=== PATIENT | female | born 1945 | race Hispanic/Latino ===

== ENCOUNTER 2023-11-09 05:00 | Observation (INO) | payer MEDICARE ==
[2023-11-04 12:05] VITALS: BP 146/80; PULSE 88; RESP 18
[2023-11-09] VITALS (26 sets, daily range): BP systolic 133–173; BP diastolic 49–93; PULSE 60–78; RESP 13–19; O2SAT 97
[~2023-11-09] VITALS: Ht 170.2 cm; Wt 102.5 kg
[~2023-11-09 05:00] MED LIST: ACET-2743 PO; AEC81 PO; CARB15DR3 OU; ESOM20CA31 PO; FIBER PO; IMODIUM PO; LINA5TAB PO; MELATONIN PO; SENOKOT PO; TRIA1TAB3 PO; VITAMIN B12 PO; VITAMIN C PO; VITAMIN E PO; ZINC50TA15 PO; [UNRECOGNIZED DRUG - CODE] PO
[2023-11-09] MEDS: CEFAZOLIN SODIUM 2 GM VIAL ONE (06:31)
[2023-11-09] MEDS: 0.9%NACL 1000ML 1,000 ML IV ONE (06:31)
[2023-11-09] MEDS ORDERED: SUCCINYLCHOLINE CHLORIDE 20 MG/ML 10 ML VIAL ONE (08:37)
[2023-11-09] MEDS ORDERED: LIDOCAINE PF 100MG/5ML (2%) SYRINGE 5ML ONE (08:37)
[2023-11-09] MEDS ORDERED: PROPOFOL 10 MG/ML 20ML VIAL IV ONE (08:38)
[2023-11-09] MEDS ORDERED: ONDANSETRON 4MG INJ ONE (08:38)
[2023-11-09] MEDS ORDERED: MIDAZOLAM HCL 1 MG/ML 2ML VIAL ONE (08:38)
[2023-11-09] MEDS ORDERED: DEXAMETHASONE SOD PHOSPHATE 10MG/ML 1ML VIAL ONE (08:38)
[2023-11-09] MEDS ORDERED: GLYCOPYRROLATE 0.2 MG/ML 5 ML VIAL ONE (08:38)
[2023-11-09] MEDS ORDERED: NEOSTIGMINE METHYLSULFATE 1MG/ML IV ONE (08:38)
[2023-11-09] MEDS ORDERED: ROCURONIUM BROMIDE 10MG/1ML 5ML VL ONE (08:38)
[2023-11-09] MEDS ORDERED: FENTANYL CITRATE PF 50 MCG/1 ML 2ML VIAL ONE ×2 (08:39→11:42)
[2023-11-09] MEDS ORDERED: GENTAMICIN SULFATE 80 MG/2 ML VIAL ONE (10:09)
[2023-11-09] MEDS ORDERED: CEFAZOLIN SODIUM 1 GM VIAL ONE (10:09)
[2023-11-09] MEDS ORDERED: TRANEXAMIC ACID 1000MG/10ML ONE (10:09)
[2023-11-09] MEDS: CEFAZOLIN SODIUM 2 GM VIAL IVPB ONE ×2 (11:16→12:29)
[2023-11-09] MEDS: TRANEXAMIC ACID 1000MG/10ML IV ONE (11:19)
[2023-11-09] MEDS: GENTAMICIN SULFATE 80 MG/2 ML VIAL TP ONE (12:29)
[2023-11-09] MEDS: 0.9%NACL 48.45 ML, ROPIVACAINE 0.5% 49.25ML, EPINEPH 0.5MG KETOROLAC 30MG,CLONIDINE 80MCG IV PRN (12:30)
[2023-11-09] MEDS ORDERED: MEPERIDINE-PF 25 MG/ML SYG ONE (13:44)
[2023-11-09] MEDS: ONDANSETRON 4MG INJ ONE (14:52)
[2023-11-09] MEDS: ACETAMINOPHEN 1,000 MG/100 ML VIAL IV ONE (14:52)
[2023-11-09] MEDS: MEPERIDINE-PF 25 MG/ML SYG ONE (14:52)
[2023-11-09] MEDS: HYDRALAZINE 20MG/ML VIAL ONE (14:53)
[2023-11-09] MEDS ORDERED: ACETAMINOPHEN 325 MG TAB PO SCH (16:00)
[2023-11-09] MEDS ORDERED: ACETAMINOPHEN 325 MG TAB PO PRN ×2 (16:00)
[2023-11-09] MEDS ORDERED: BENZOCAINE/MENTH/CETYLPYRD CL 1 EACH LOZENGE MM PRN (16:00)
[2023-11-09] MEDS ORDERED: DIPHENOXYLATE HCL/ATROPINE 2.5/0.025 MG TAB PO PRN (16:00)
[2023-11-09] MEDS ORDERED: MAG/ALUM/SIMETH 30 ML UDCUP PO PRN (16:00)
[2023-11-09] MEDS ORDERED: DiphenhydrAMINE HCL 50 MG/ML VIAL IM PRN (16:00)
[2023-11-09] MEDS ORDERED: DIPHENHYDRAMINE HCL 25 MG CAPSULE PO SCH (16:00)
[2023-11-09] MEDS ORDERED: IMODIUM PO PRN (16:30)
[2023-11-09] MEDS ORDERED: SENOKOT PO PRN (16:30)
[2023-11-09] MEDS ORDERED: PANTOPRAZOLE 40 MG TAB DR PO PRN (16:30)
[2023-11-09] MEDS: HYDROMORPH /0.9% NACL/PF PCA 50 ML IV PRN (16:47)
[2023-11-09] MEDS: 0.9%NACL 1000ML 1,000 ML IV SCH (16:50)
[2023-11-09] MEDS: ONDANSETRON 4MG INJ IVP PRN (16:50)
[2023-11-09] MEDS ORDERED: CEFAZOLIN SODIUM 2 GM VIAL IVPB SCH (19:30)
[2023-11-09] MEDS: CARBOXYMETHYLCELLULOSE SODIUM OU SCH (20:11)
[2023-11-09] MEDS: [UNRECOGNIZED DRUG - OTHER] PO SCH (20:12)
[2023-11-09] MEDS: TRIAMTEREN/HCTZ 37.5/25 MG 1 TAB TAB PO SCH (20:12)
[2023-11-09] MEDS: CEFAZOLIN SODIUM 3 GM in DEXTROSE 5%-WATER 100 ML IVPB SCH (20:12)
[2023-11-09] MEDS: ASPIRIN 81 MG EC TAB PO SCH (20:12)
[2023-11-09] MEDS: HALOPERIDOL INJ 5 MG/ML VIAL IM SCH (21:44)
[2023-11-10] VITALS (9 sets, daily range): BP systolic 110–155; BP diastolic 53–69; PULSE 64–76; RESP 18–19; O2SAT 96
[2023-11-10] MEDS ORDERED: HYDROMORPHONE 0.5 MG SYG (0.5MG/0.5ML) IVP PRN ×2 (03:30)
[2023-11-10] MEDS: PROMETHAZINE HCL 25 MG/ML 1ML AMPULE IM ONE (03:46)
[2023-11-10 03:52] LABS: HEMATOCRIT 37.3 % (36-48); MEAN CORPUSCULAR HEMOGLOBIN 30.5 pg (27.0-33.0); MEAN CORPUSCULAR HGB CONC 33.2 g/dL (32.0-36.0); MEAN CORPUSCULAR VOLUME 91.6 fL (79-99); RED BLOOD CELL COUNT(AUTO) 4.07 MIL/uL (4.00-5.50); RED CELL DISTRIBUTION WIDTH 13.6 % (11.0-15.5); WHITE BLOOD COUNT (AUTO) 20.1 K/uL (4.8-10.8)
[2023-11-10 04:06] LABS: CREATININE 0.9 mg/dL (0.5-1.0); MAGNESIUM 1.9 mg/dL (1.80-2.40); POTASSIUM 3.7 mmol/L (3.5-5.1)
[2023-11-10 04:09] LABS: INR 0.96 (0.85-1.15); PROTHROMBIN TIME 11.4 SEC (9.6-11.6)
[2023-11-10 04:10] LABS: PARTIAL THROMBOPLASTIN TIME 20.5 SEC (26.3-35.5)
[2023-11-10] MEDS: TRAMADOL HCL 50 MG TABLET PO PRN ×2 (04:15→09:58)
[2023-11-10] MEDS ORDERED: PHARMACY COMMUNICATION MISC SCH (07:30)
[2023-11-10] MEDS: LINAGLIPTIN 5 MG TABLET PO SCH (08:40)
[2023-11-10] MEDS: RIVAROXABAN 10 MG TABLET PO SCH (08:40)
[2023-11-10] MEDS ORDERED: LOPERAMIDE HCL 2 MG CAP PO PRN (09:00)
[2023-11-10] MEDS: LACTULOSE 20 GM/30 ML UDCUP PO PRN (17:54)
[2023-11-11 03:52] LABS: HEMATOCRIT 34.1 % (36-48); MEAN CORPUSCULAR HEMOGLOBIN 29.3 pg (27.0-33.0); MEAN CORPUSCULAR HGB CONC 32.8 g/dL (32.0-36.0); MEAN CORPUSCULAR VOLUME 89.3 fL (79-99); RED BLOOD CELL COUNT(AUTO) 3.82 MIL/uL (4.00-5.50); RED CELL DISTRIBUTION WIDTH 14.2 % (11.0-15.5); WHITE BLOOD COUNT (AUTO) 11.7 K/uL (4.8-10.8)
[2023-11-11 03:58] LABS: CREATININE 0.8 mg/dL (0.5-1.0)
[2023-11-11 04:01] LABS: INR 1.06 (0.85-1.15); PROTHROMBIN TIME 12.5 SEC (9.6-11.6)
[2023-11-11 04:02] LABS: PARTIAL THROMBOPLASTIN TIME 30.8 SEC (26.3-35.5)
[2023-11-11] MEDS ORDERED: POTASSIUM CHLORIDE 10% ELIXIR 20 MEQ/15 ML UDCUP PO PRN (04:30)
[2023-11-11] MEDS: KCL 20 MEQ ERTAB PO PRN (04:53)
[2023-11-11] MEDS: POTASSIUM CHLORIDE 20MEQ/100ML 100 ML IV PRN (04:53)
[2023-11-11 05:41] VITALS: BP 129/75; PULSE 72; RESP 18
[2023-11-11 08:00] VITALS: BP 134/55; PULSE 96; RESP 18
[2023-11-11 11:25] VITALS: O2SAT 95
[2023-11-11 12:00] VITALS: BP 135/65; PULSE 74; RESP 18
[2023-11-11 16:00] VITALS: BP 165/85; PULSE 103; RESP 18
[2023-11-11 20:00] VITALS: BP 163/69; PULSE 89; RESP 20
[2023-11-12] VITALS (8 sets, daily range): BP systolic 133–152; BP diastolic 49–75; PULSE 68–99; RESP 16–20; O2SAT 96–97
[2023-11-12 04:04] LABS: HEMATOCRIT 33.1 % (36-48); MEAN CORPUSCULAR HEMOGLOBIN 30.1 pg (27.0-33.0); MEAN CORPUSCULAR HGB CONC 33.5 g/dL (32.0-36.0); MEAN CORPUSCULAR VOLUME 89.7 fL (79-99); RED BLOOD CELL COUNT(AUTO) 3.69 MIL/uL (4.00-5.50); RED CELL DISTRIBUTION WIDTH 14.1 % (11.0-15.5); WHITE BLOOD COUNT (AUTO) 14.2 K/uL (4.8-10.8)
[2023-11-12 04:33] LABS: CREATININE 0.7 mg/dL (0.5-1.0); POTASSIUM 3.7 mmol/L (3.5-5.1)
[2023-11-12] MEDS: DIPHENHYDRAMINE HCL 25 MG CAPSULE PO PRN (21:57)
[2023-11-13] VITALS: BP 153/51; PULSE 62; RESP 20
[2023-11-13 04:00] VITALS: BP 123/58; PULSE 71; RESP 18
[2023-11-13 08:00] VITALS: BP 105/45; PULSE 50; RESP 20; O2SAT 97
[2023-11-13 12:00] VITALS: BP 143/59; PULSE 70; RESP 18
== END 2023-11-13 17:10 ==
LOC: DAH 05:00 → DAHIP 05:01 → DAH 05:01 → 4DH 15:20
PROVIDERS: ADMIT Orthopaedic Surgery; ATTEND Orthopaedic Surgery
DX: M17.11 Unilateral primary osteoarthritis, right knee (principal); E87.6 Hypokalemia; I13.0 Hypertensive heart and chronic kidney disease with heart failure and stage 1 through stage 4 chronic kidney disease, or unspecified chronic kidney disease; I50.32 Chronic diastolic (congestive) heart failure; N18.9 Chronic kidney disease, unspecified; I25.10 Atherosclerotic heart disease of native coronary artery without angina pectoris; J45.909 Unspecified asthma, uncomplicated; E78.5 Hyperlipidemia, unspecified; Z90.710 Acquired absence of both cervix and uterus; Z90.49 Acquired absence of other specified parts of digestive tract; Z95.0 Presence of cardiac pacemaker; Z79.01 Long term (current) use of anticoagulants; Z79.82 Long term (current) use of aspirin; Z88.8 Allergy status to other drugs, medicaments and biological substances
CPT/HCPCS: 71045; 93005; 87641; 27447; 96376 ×2; 96372 ×2; 96365; 96366 ×8; 96375; 96368; 82948 ×15; 97161; 97012; 97530 ×19; 83735; 80048 ×3; 85027 ×3; 85610 ×2; 85730 ×2; 36415 ×3; 97116 ×8; A6260; G0378 ×90; A4510; A4663; J7120; A4215 ×2; A4649 ×4; J3010 ×2; J0690 ×5; J3490 ×4; J1100; J0330; J7030 ×2; J2001; J1630; J0360; J1580 ×2; J2250; J7060; J2704; J2405 ×5; J2710; J2175 ×2; A6223; A4930 ×2; C1763 ×2; C1776; A5120; A4223; A4222; A4221; A6450; J2550; J3480; Q0163; 96367